=== PATIENT | male | born 1990 | race Caucasian/White ===

== ENCOUNTER → 2020-07-22 07:17 | Outpatient (CLI) | payer OTHER, SELFPAY ==
[2020-07-22 10:20] LABS: HIV - WCH Non-Reactive (Nonreactive); Hepatitis B Surface Antigen Non-Reactive (Nonreactive); Hepatitis C Antibody Non-Reactive (Nonreactive)
[2020-07-29 05:22] LABS: Rapid Plasmin Reagin (RPR) NONREACTIVE (NONREACTIVE)
== END ==
PROVIDERS: PCP Family Medicine; Referring Provider Obstetrics & Gynecology Reproductive Endocrinology; Visit Provider Obstetrics & Gynecology Reproductive Endocrinology
DX: Z11.3 Encounter for screening for infections with a predominantly sexual mode of transmission (principal); Z11.59 Encounter for screening for other viral diseases; Z11.8 Encounter for screening for other infectious and parasitic diseases
CPT/HCPCS: 86592; 86703; 86803; 87340

== ENCOUNTER 2022-09-27 14:12 | Emergency (ER) | payer OTHER, SELFPAY ==
[2022-09-27 14:13] VITALS: BP 121/77; PULSE 71; RESP 16; TEMP 36.4; O2SAT 100; BMI 26.4
[2022-09-27 15:49] LABS: Bacteria 0 SEEN /hpf (None Seen); Mucous, Urine 0 SEEN /hpf (<or=2+); Squamous Epithelial Cells - UA 0 SEEN /hpf (0-5); White Blood Cells 0 SEEN /hpf (0-5)
[2022-09-27 15:55] LABS: Color, Urine Yellow (Yellow); Glucose, Dipstick Normal (Normal); Ketone-Dipstick Negative (Negative); Leukocyte Esterase-Dipstick 25 /ul (Negative); Nitrite-Dipstick Negative (Negative); Occult Blood-Urine 250 /ul (Negative); Protein-Dipstick 30 mg/dl (Negative); Specific Gravity, Urine 1.015 (1.002-1.030); Urine Bilirubin Dipstick Negative (Negative); Urine Clarity Clear (Clear); Urine Urobilinogen Normal (Normal)
--- NOTE | 2022-09-27 15:55 | EDS_ITS ---
HPI History of Present Illness Chief Complaint: Flank Pain Detail of Chief Complaint: Right flank pain and rust colored urine Informant: patient Onset/Context/Timing Onset: Yesterday Context: Sudden Onset Timing: Intermittent and Waxes and wanes Quality: Pain Location: Right groin initially then right flank radiating to the right side of the a Current Severity: Gone Maximum Severity: Severe Worsened by: Nothing Relieved by: Nothing Associated Symptoms Associated Symptoms: Rust colored urine Narrative Narrative: Patient is a 32-year-old male who presents with flank pain. He states yesterday he had pain in the right groin area that radiated to his right flank area. The pain was waxing and waning in nature. It resolved on its own. He has had pain since. Now the pain is located in the right flank that radiates to the anterior right lower quadrant. He has persistent rust colored urine. He denies weight loss or weight gain. He denies fever, chills or night sweats. He denies history of renal ureterolithiasis. There is a family history of renal lithiasis i.e. mother and father. He denies trauma to the abdomen or back. He denies scrotal pain, swelling or testicular pain. He presently is symptom-free. Prior similar symptoms: No Recent Illness/Hospitalization: No PFSH PFSH Medical History no medical history no medical history Allergy/AdvReac Type Severity Reaction Status Date / Time No Known Allergies Allergy Verified 09/27/22 14:12 Family History (Updated 09/27/22 @ 15:[address] Pb Coyne MD) Father Kidney disease Mother Kidney disease Surgical History no surgical history Social History (Updated 09/27/22 @ 15:[address] Pb Coyne MD) Smoking Status: Never smoker alcohol intake: current alcohol intake frequency: holidays/special occasions only substance use type: does not use ROS ROS ED Constitutional Constitutional ED: Denies chills, fever(s), subjective, sweats or weight loss Eyes Eyes: Denies blurry vision or change in vision ENT ENT ED: Denies ear pain, rhinorrhea or sore throat Cardiovascular Cardiovascular: Denies chest pain, palpitations or racing heartbeat Respiratory/Chest Respiratory/Chest: Denies cough, dyspnea or dyspnea on exertion Gastrointestinal Gastrointestinal: Denies abdominal pain, nausea or vomiting Genitourinary Genitourinary ED: Reports hematuria; Denies dysuria or urinary frequency Musculoskeletal Musculoskeletal: Reports back pain; Denies arthralgias or myalgias Integumentary Denies abscess, Abrasions or rash Neurologic Neurologic: Denies headache(s) or paresthesias Hematologic/Lymphatic Hematologic/Lymphatic: Denies anemia, easy bleeding or easy bruising EXAM Physical Exam Const Vital Signs: 09/27/22 14:13 Temperature 97.6 F L Temperature Source Temporal Pulse Rate 71 Respiratory Rate 16 Blood Pressure 121/77 H Blood Pressure Mean 91 Pulse Ox 100 Oxygen Delivery Method Room Air Positive well nourished and well developed General Appearance ED: well developed and NAD; Negative for cyanotic, diaphoretic or pallor HEENT Reports moist mucous membranes HEENT Narrative: Head is atraumatic normocephalic. Ears normal. Nares patent. Mucosa moist. Eyes PERRL and EOMs intact bilaterally General Eye ED: Negative for pale conjunctiva or scleral icterus Neck no lymphadenopathy, supple and no JVD Chest Wall inspection of chest normal and palpation of chest normal Resp normal respiratory effort and clear to auscultation bilaterally Cardio regular rate, regular rhythm, S1 normal heart sound, S2 normal heart sound and no murmurs GI normal to inspection, nondistended, normoactive bowel sounds, non-tender, non- distended and no masses; Negative for hepatosplenomegaly Back/Spine no CVA tenderness Cervical Spine: Negative for cervical spine tenderness Thoracic Spine / Upper Back: Negative for thoracic spinal tenderness Lumbar Spine / Lower Back: Negative for lumbar spinal tenderness Neuro oriented x3, CN's II-XII intact bilaterally and no sensory deficits noted Sensorium / Orientation: alert Motor Exam: strength 5/5 throughout Psych mental status grossly normal Skin no rashes or lesions noted and no wounds General Skin Exam: elasticity normal; Negative for jaundice or pallor MDM MDM MDM Narrative Medical decision making narrative: History and physical is consistent with renal pathology. Need to evaluate for renal/ureterolithiasis versus other cause of gross hematuria. CBC was obtained to assess H&H and white count. BMP to assess renal function. CT of the abdomen pelvis without contrast was ordered because primary thought is patient has a ureteral stone that is causing intermittent obstruction. Lab Data Attestation: I reviewed the patient's lab results. Lab results narrative: CBC and basic metabolic panel unremarkable. Urine is consistent with hematuria. There is no active infection. Labs: Laboratory Results - last 24 hr 11/23/22 11/23/22 11/23/22 15:20 15:20 15:35 WBC 5.8 RBC 5.02 Hgb 14.9 Hct 43.0 MCV 85.7 MCH 29.7 MCHC 34.7 RDW Std Deviation 36.7 RDW Coeff of Megan 11.9 Plt Count 256 MPV 9.5 Immature Gran % (Auto) 0.200 Neut % (Auto) 60.8 Lymph % (Auto) 29.0 [place] % (Auto) 7.6 Eos % (Auto) 1.9 Baso % (Auto) 0.5 Absolute Neuts (auto) 3.5 Absolute Lymphs (auto) 1.68 Nucleated RBC % 0 Sodium 142 Potassium 3.8 Chloride 107 Carbon Dioxide 32.0 Anion Gap 3 L BUN 13 Creatinine 1.04 Estim Creat Clear Calc 96.83 Est GFR (MDRD) Af Amer 105 Est GFR (MDRD) Non-Af 87 BUN/Creatinine Ratio 12.5 Glucose 85 Calcium 9.0 Urine Color Yellow Urine Clarity Clear Urine pH 7.0 Ur Specific [place] 1.015 Urine Protein 30 H Urine Glucose (UA) Normal Urine Ketones Negative Urine Occult Blood 250 H Urine Nitrite Negative Urine Bilirubin Negative Urine Urobilinogen Normal Ur Leukocyte Esterase 25 H Urine RBC > 100 SEEN Urine WBC 0 SEEN Ur Squamous Epith Cells 0 SEEN Amorphous Sediment 1+ Urine Bacteria 0 SEEN Urine Mucus 0 SEEN Radiography Diagnostic Testing: Clinical Impression(s) from Imaging Studies Abdomen/Pelvis CT 09/27/22 15:55 IMPRESSION: (NOT LISTED IN ORDER OF SIGNIFICANCE) There is no right hydronephrosis. However there is a 4.5 mm right UVJ stone. Other findings as above. Electronically Signed: Erci Garcia MD at 16:29 EST Reading Location ID and State: [facility] / [place] , Service support , Treatment and Re-Evaluation Narrative: Patient was informed of results. Pain-free. He will be discharged home with a ppropriate home-going instructions Discharge Plan Triage Chief Complaint: Flank Pain ED Provider: Pb Coyne Dx/Rx/DC Orders Clinical Impression: Calculus of distal left ureter, Gross hematuria Instructions: ED Kidney Stone w/ Colic Primary Care Provider: Adamaris Guzman Referrals: Adamaris Guzman MD [Primary Care Provider] - AnthonyRajinder payne MD [Med Staff - Active Staff] - 5-7 Days Disposition Disposition: Home, Self Care
--- NOTE | 2022-09-27 15:55 | CT_ITS ---
STUDY: CT Abdomen And Pelvis W/O Contrast Injection 09/27/2022 4:25 PM REASON FOR EXAM: Male, 32 years old. ABDOMINAL PAIN Kidney Stone Technologist Notes RT FLANK PAIN, HEMATURIA X 2 DAYS Technologist Notes RT FLANK PAIN, HEMATURIA X 2 DAYS TECHNIQUE: Transaxial images were obtained without oral contrast, and without intravenous contrast. Individualized dose optimization techniques were used for this CT. COMPARISON: None. FINDINGS: The visualized lung bases are unremarkable. The visualized portions of the heart are within normal limits. Unremarkable liver. Unremarkable gallbladder and extrahepatic biliary system. Unremarkable spleen. Unremarkable pancreas. Unremarkable bilateral adrenal glands. No acute findings of the right kidney. There is no right hydronephrosis. However there is a 4.5 mm right UVJ stone. No acute findings of the left kidney. Unremarkable visualized stomach. Unremarkable small intestine. Unremarkable colon. The appendix is visualized and appears unremarkable. There are no acute findings of the abdominal aorta. Unremarkable inferior vena cava. Subcentimeter mesenteric lymph nodes. Unremarkable urinary bladder. There is an umbilical hernia containing fat. There are diffuse degenerative changes of the visualized lumbar spine. CT/Abdomen/Pelvis without Cont IMPRESSION: (NOT LISTED IN ORDER OF SIGNIFICANCE) There is no right hydronephrosis. However there is a 4.5 mm right UVJ stone. Other findings as above. Electronically Signed: Eric Garcia MD at 16:29 EST ,
[2022-09-27 16:07] LABS: Absolute Lymphocyte Count 1.68 X10^3/uL (0.83-4.51); Absolute Neutrophil Count 3.5 X10^3/uL (2.0-7.7); Basophil# 0.03 X10^3/uL; Basophil% 0.5 % (0-1); Eosinophil# 0.11 X10^3/uL; Eosinophils% 1.9 % (0-5); Hemoglobin 14.9 g/dL (13.0-16.5); Lymphocyte # 1.68 X10^3/ul (0.83-4.51); Mean Corp Hgb Conc 34.7 g/dL (32-36); Mean Corpuscular Hgb 29.7 pg (27.0-32.0); Mean Corpuscular Volume 85.7 fL (80-94); Mean Platelet Vol. 9.5 fl (6.2-12.0); Monocyte# 0.44 X10^3/uL; Monocyte% 7.6 % (0-10); NRBC Flagged by Analyzer 0 % (0-5); Neutrophil # 3.52 X10^3/uL (2.7-7.7); Neutrophil % 60.8 % (47-70); Platelet Count 256 K/mm3 (150-450); RBC Distribution Width CV 11.9 % (11.6-14.6); RBC Distribution Width SD 36.7 fl (35.1-43.9); Red Blood Count 5.02 M/mm3 (4.6-6.2); White Blood Count 5.8 K/mm3 (4.4-11.0)
[2022-09-27 16:13] LABS: Red Blood Cells-Urine > 100 SEEN /hpf (0-5)
[2022-09-27 16:14] LABS: Amorphous Sediment 1+
[2022-09-27 16:19] LABS: Anion Gap 3 (5-15); BUN 13 mg/dL (7-18); BUN/Creat Ratio 12.5 RATIO (10-20); Chloride 107 mmol/L (98-107); Creatinine, Serum 1.04 mg/dL (0.70-1.30); EST Glomerular Filtration Rate 87 mL/min (>60); Est Glom Filt Rate - Afr Amer 105 mL/min (>60); Estimated Creatinine Clearance 96.83 ml/min; Glucose 85 mg/dL (74-106); Potassium 3.8 mmol/L (3.5-5.1); Sodium Level 142 mmol/L (136-145)
[2022-09-27 18:12] VITALS: BP 110/73; PULSE 64; RESP 16; O2SAT 100
== END 2022-09-27 18:13 | disposition home or self-care (01) ==
PROVIDERS: Emergency Provider Emergency Medicine; PCP Family Medicine; Visit Provider Emergency Medicine
DX: N20.1 Calculus of ureter (principal); R31.0 Gross hematuria
CPT/HCPCS: 74176; 80048; 81001; 85025; 99283

== ENCOUNTER → 2022-11-30 | Outpatient (CLI) | payer OTHER, SELFPAY ==
[2022-11-30 08:48] LABS: HIV - WCH Non-Reactive (Nonreactive); Hepatitis B Surface Antibody Reactive; Hepatitis C Antibody Non-Reactive (Nonreactive); Syphilis Antibodies Non-reactive
== END | disposition home or self-care (01) ==
PROVIDERS: PCP Family Medicine; Referring Provider Obstetrics & Gynecology Reproductive Endocrinology; Visit Provider Obstetrics & Gynecology Reproductive Endocrinology
DX: Z11.59 Encounter for screening for other viral diseases (principal); Z11.8 Encounter for screening for other infectious and parasitic diseases
CPT/HCPCS: 36415; 86703; 86706; 86780; 86803

== ENCOUNTER → 2023-11-15 | Outpatient (CLI) | payer OTHER, SELFPAY ==
--- OUTSIDE RECORDS SUMMARY | 2023-11-15 06:24 | XMS RPT_ITS | CCD ---
Author Name Unknown Address [address] [place] [address] [address] [place] [address] Organization [facility] Care Team Providers Care Die Tester Name Role Phone Unavailable Primary Care Provider Unavailabl e Medications Completed/Discontinued Medications Medication Drug Class(es) Dates Sig (Normalized) Sig (Original) azithromycin 250 mg oral tablet (1 source) Macrolide Antimicrobial Start: 08-08-2011 azithromycin (ZITHROMAX Z-MARIEL) 250 mg ORAL tablet Take by mouth. Take two tablets the first day and 1 tablet x 4 days. 1 Package 0 08/08/2011 Active Problems Active Problems Problem Classification Problem Date Documented Date Episodic/Chronic Abdominal pain (1 source) Right flank pain; Translations: [Unspecified abdominal pain] Episodic Other congenital anomalies (1 source) Congenital spondylolysis of lumbosacral region; Translations: [Congenital spondylolisthesis] Onset: 01-10-2006 01-10-2006 Chronic Urinary tract infections (1 source) Acute cystitis; Translations: [Acute cystitis with hematuria] Episodic Past or Other Problems Problem Classification Problem Date Documented Da te Episodic/Chronic Allergic reactions (1 source) Disorders of skin induced by physical agents; Translations: [Unspecified contact dermatitis due to plants, except food] Onset: 04-30-2006 04-30-2006 Episodic Results Test Name Value Interpretation Reference Range Facil ity Vital Signs Date Time Vital Sign Value Performing Clinician Kenna stiles 09-27-2022 13:24-0500 Body temperature 97.2 [degF] Nadeem Ortega APRN.CNP Work Phone: [facility] 09-27-2022 13:24-0500 Body weight 79.02 kg Nadeem Ortega APRN.CNP Work Phone: [facility] 09-27-2022 13:24-0500 Diastolic blood pressure 80 mm[Hg] Nadeem Ortega PROOF PASSER.SHE[employer] ROCKER Work Phone: [facility] 09-27-2022 13:24-0500 Heart rate 74 /min Nadeem Ortega PROOF PASSER.SHE[employer] ROCKER Work Phone: [facility] 09-27-2022 13:24-0500 Respiratory rate 16 /min Nadeem Ortega PROOF PASSER.SHEET ROCKER Work Phone: [facility] 09-27-2022 13:24-0500 SaO2% (BldA) [Mass fraction] 98 % Nadeem Ortega PROOF PASSER.SHEET ROCKER Work Phone: [facility] 09-27-2022 13:24-0500 Systolic blood pressure 122 mm[Hg] Nadeem Ortega PROOF PASSER.SHEET ROCKER Work Phone: [facility] Encounters Encounter Date Encounter Type Care Provider Facility Start: 09-27-2022 End: 09-27-2022 ambulatory Facility:[facility] Start: 09-27-2022 End: 09-27-2022 Patient encounter procedure Nadeem Ortega PROOF PASSER.SHE[employer] ROCKER Work Phone: [facility] Procedures Date Procedure Procedure Detail Performing Clinician Start: 09-27-2022 Urnls dip stick/tabl et rgnt auto w/o microscopy Katelynn Campos PROOF PASSER.SHEET ROCKER Work Phone: Plan of Treatment Date Care Activity Detail Author Start: 07-06-2022 Influenza vaccination INFLUENZA (#1) [facility] Start: 11-25-2021 COVID-19 VACCINE (4 - Booster for Moderna series) COVID-19 VACCINE (4 - Booster for Moderna series) [facility] Start: 11-05-2021 DEPRESSION ASSESSMENT DEPRESSION ASS ESSMENT [facility] Start: 2007 Urine microalbumin profile DTAP,TDAP ,TD (1 - Tdap) [facility] Start: 2006 HEPATITIS C SCREENING HEPATITIS C SC ESTRELLA [facility] Start: 2006 HIV SCREENING HIV SCREENING [facility] Start: 1988 HEPATITIS B (1 of 3 - 3-dose series) HEPATITIS B (1 of 3 - 3-dose series) [facility] Immunizations Immunization Date Immunization Notes Care Provider Dipak leilani 05-10-2007 meningococcal polysaccharide vaccine (MPSV4) Nadeem Ortega APRN.CNP Work Phone: [facility] Work Phone: Payers Date Payer Category Payer Unknown MMO MMO [employer] [id number] 2021-Present [phone] [address] [place] [address] PPO [id number] 2021 Unknown [id number] Social History Date Type Detail Facility Start: 09-27-2022 Tobacco smoking stat [facility] Never smoked tobacco [facility] Start: 09-27-2022 Tobacco use and exposure Smoke less tobacco non-user [facility] Start: 09-27-2022 Alcohol intake Current non-dr rose grower of alcohol (finding) [facility] Start: 1990 Sex Assigned At Not on file C [facility] Progress note 09-27-2022 Note Date & Type Note Facility 09-27-2022 Note HNO ID: [id number] Author: Nadeem Ortega APRN.SHEET ROCKER Service: ? Author Type: Nurse Practitioner Type: Progress Notes Filed: 09/27/2022 2:12 PM Note Text: Subjective HPI Nontoxic-appearing male presents urgent care chief complaint flank pain and hematuria. Duration of symptoms 1 day. Associated symptoms gradually worsening flank pain wrapping around to front right lower quadrant. Patient states pain comes and goes. Pain is spastic like. Patient states pain is not overly bothersome currently. Denies any known injuries. States he first noticed blood in his urine. That has become more dark recently. Has not use any OTC medications recently. Denies personal history of kidney stones. States has a strong family history of kidney stones. Denies any weak urine stream or difficulty passing urine. Denies any fever body aches chills productive cough chest pain shortness of breath pleuritic pain hemoptysis nausea vomiting abdominal pain testicular pain or scrotal swelling rashes dysuria frequency urgency or penile discharge. Past medical history prescription medication use and allergies reviewed. .Patient presents with: right flank pain and hematuria: Right flank pain and hematuria x 1 day History reviewed. No pertinent past medical history. PAST SURGICAL HISTORY Procedure Laterality Date ADENOIDECTOMY PRIMARY Adenoidectomy TONSILLECTOMY PRIMARY/SECONDARY Tonsillectomy ALLERGIES Patient has no known allergies. MEDICATIONS azithromycin (ZITHROMAX Z-MARIEL) 250 mg ORAL tablet Take by mouth. Take two tablets the first day and 1 tablet x 4 days. (Patient not taking: Reported on 04/28/2021 ) predniSONE 20 mg ORAL tablet Take by mouth. TAKE ONE(1) TABLET THREE TIMES DAILY FOR 3 DAYS, THEN TAKE ONE(1) TABLET TWO(2) TIMES DAILY FOR 3 DAYS, THEN TAKE ONE(1) TABLET DAILY. (Patient not taking: Reported on 04/28/2021 ) Afwvzaggxtirhtw-Ebvxdcw-ZC (CHERATUSSIN DAC) 30-10-100 mg/5 mL ORAL solution Take 10 mL by mouth four times daily as needed. (Patient not taking: Reported on 04/28/2021) FAMILY HISTORY Problem Relation Age of Onset Cancer Paternal Grandfather None Mother Hypertension Father Social History Tobacco Use Smoking status: Never Smokeless tobacco: Never Substance Use Topics Alcohol use: No Drug use: No BP 122/80 Pulse 74 Temp 36.2 ?C (97.2 ?F) (Tympanic) Resp 16 Wt 79 kg (174 lb 3.2 oz) SpO2 98% Review of Systems Constitutional: Negative for chills, fever and malaise/fatigue. HENT: Negative for congestion, ear discharge, ear pain, sinus pain and sore throat. Eyes: Negative for blurred vision, pain, discharge and redness. Respiratory: Negative for cough, hemoptysis, sputum production, shortness of breath, wheezing and stridor. Cardiovascular: Negative for chest pain. Gastrointestinal: Negative for abdominal pain, diarrhea, nausea and vomiting. Genitourinary: Positive for flank pain and hematuria. Negative for dysuria, frequency and urgency. Musculoskeletal: Negative for myalgias. Skin: Negative for itching and rash. Neurological: Negative for dizziness and headaches. Objective Physical Exam Constitutional: General: He is not in acute distress. Appearance: He is not diaphoretic. HENT: Head: Normocephalic. Eyes: Conjunctiva/sclera: Conjunctivae normal. Pupils: Pupils are equal, round, and reactive to light. Cardiovascular: Rate and Rhythm: Normal rate and regular rhythm. Heart sounds: Normal heart sounds. Pulmonary: Effort: Pulmonary effort is normal. No tachypnea, accessory muscle usage or respiratory distress. Breath sounds: Normal breath sounds. No stridor. No wheezing or rales. Abdominal: General: There is no distension. Palpations: Abdomen is soft. Tenderness: There is no abdominal tenderness. There is no right CVA tenderness, left CVA tenderness, guarding or rebound. Skin: General: Skin is warm and dry. Neurological: Mental Status: He is alert and oriented to person, place, and time. ASSESSMENT/PLAN: 1. Right flank pain - ICD9: 789.09, ICD10: R10.9 (primary diagnosis) - UA DIP, URINE (POC) - CONSULT TO UROLOGY 2. Acute cystitis with hematuria - ICD9: 595.0, ICD10: N30.01 - CONSULT TO UROLOGY Patient diagnosed with right flank pain. Large amount of blood noted on urine dip. Suspicious of kidney stone. We discussed supportive therapies and treatment options. We discussed red flags for prompt reevaluation. We discussed ER evaluation today. Patient states will discuss with to be seen in ED or not today. I discussed the importance of reevaluation with urology for repeat urinalysis due to hematuria. Stressed importance of ED reevaluation with the patient. The patient's clinical presentation is otherwise unremarkable at this time. Based on exam and clinical finding, the patient is stable for discharge. Plan of care was discussed with patient. Patient verbalizes understanding and agrees (more content not included)... [facility] History of Present illness Narrative 09-27-2022 Nadeem Ortega APRN.[facility] - 09/27/2022 1:38 PM EST Note Date & Type Note Facility 09-27-2022 History of Presen t illness Narrative Subjective HPI Nontoxic-appearing male presents urgent care chief complaint flank pain and hematuria. Duration of symptoms 1 day. Associated symptoms gradually worsening flank pain wrapping around to front right lower quadrant. Patient states pain comes and goes. Pain is spastic like. Patient states pain is not overly bothersome currently. Denies any known injuries. States he first noticed blood in his urine. That has become more dark recently. Has not use any OTC medications recently. Denies personal history of kidney stones. States has a strong family history of kidney stones. Denies any weak urine stream or difficulty passing urine. Denies any fever body aches chills productive cough chest pain shortness of breath pleuritic pain hemoptysis nausea vomiting abdominal pain testicular pain or scrotal swelling rashes dysuria frequency urgency or penile discharge. Past medical history prescription medication use and allergies reviewed. .Patient presents with: right flank pain and hematuria: Right flank pain and hematuria x 1 day History reviewed. No pertinent past medical history. PAST SURGICAL HISTORY Procedure Laterality Date ADENOIDECTOMY PRIMARY <AGE 10 Adenoidectomy TONSILLECTOMY PRIMARY/SECONDARY <AGE 10 Tonsillectomy ALLERGIES Patient has no known allergies. MEDICATIONS azithromycin (ZITHROMAX Z-MARIEL) 250 mg ORAL tablet Take by mouth. Take two tablets the first day and 1 tablet x 4 days. (Patient not taking: Reported on 04/28/2021 ) predniSONE 20 mg ORAL tablet Take by mouth. TAKE ONE(1) TABLET THREE TIMES DAILY FOR 3 DAYS, THEN TAKE ONE(1) TABLET TWO(2) TIMES DAILY FOR 3 DAYS, THEN TAKE ONE(1) TABLET DAILY. (Patient not taking: Reported on 04/28/2021 ) Bozlkruphagodfc-Paeydva-BA (CHERATUSSIN DAC) 30-10-100 mg/5 mL ORAL solution Take 10 mL by mouth four times daily as needed. (Patient not taking: Reported on 04/28/2021) FAMILY HISTORY Problem Relation Age of Onset Cancer Paternal Grandfather None Mother Hypertension Father Social History Tobacco Use Smoking status: Never Smokeless tobacco: Never Substance Use Topics Alcohol use: No Drug use: No BP 122/80 Pulse 74 Temp 36.2 C (97.2 F) (Tympanic) Resp 16 Wt 79 kg (174 lb 3.2 oz) SpO2 98% Review of Systems Constitutional: Negative for chills, fever and malaise/fatigue. HENT: Negative for congestion, ear discharge, ear pain, sinus pain and sore throat. Eyes: Negative for blurred vision, pain, discharge and redness. Respiratory: Negative for cough, hemoptysis, sputum production, shortness of breath, wheezing and stridor. Cardiovascular: Negative for chest pain. Gastrointestinal: Negative for abdominal pain, diarrhea, nausea and vomiting. Genitourinary: Positive for flank pain and hematuria. Negative for dysuria, frequency and urgency. Musculoskeletal: Negative for myalgias. Skin: Negative for itching and rash. Neurological: Negative for dizziness and headaches. Objective Physical Exam Constitutional: General: He is not in acute distress. Appearance: He is not diaphoretic. HENT: Head: Normocephalic. Eyes: Conjunctiva/sclera: Conjunctivae normal. Pupils: Pupils are equal, round, and reactive to light. Cardiovascular: Rate and Rhythm: Normal rate and regular rhythm. Heart sounds: Normal heart sounds. Pulmonary: Effort: Pulmonary effort is normal. No tachypnea, accessory muscle usage or respiratory distress. Breath sounds: Normal breath sounds. No stridor. No wheezing or rales. Abdominal: General: There is no distension. Palpations: Abdomen is soft. Tenderness: There is no abdominal tenderness. There is no right CVA tenderness, left CVA tenderness, guarding or rebound. Skin: General: Skin is warm and dry. Neurological: Mental Status: He is alert and oriented to person, place, and time. ASSESSMENT/PLAN: 1. Right flank pain - ICD9: 789.09, ICD10: R10.9 (primary diagnosis) - UA DIP, URINE (POC) - CONSULT TO UROLOGY 2. Acute cystitis with hematuria - ICD9: 595.0, ICD10: N30.01 - CONSULT TO UROLOGY Patient diagnosed with right flank pain. Large amount of blood noted on urine dip. Suspicious of kidney stone. We discussed supportive therapies and treatment options. We discussed red flags for prompt reevaluation. We discussed ER evaluation today. Patient states will discuss with to be seen in ED or not today. I discussed the importance of reevaluation with urology for repeat urinalysis due to hematuria. Stressed importance of ED reevaluation with the patient. The patient's clinical presentation is otherwise unremarkable at this time. Based on exam and clinical finding, the patient is stable for discharge. Plan of care was discussed with patient. Patient verbalizes understanding and agrees to plan of care. This note was generated using [employer] software. It may contain errors in wording, punctuation, or spelling. Nadeem Ortega APRN.NICOLAS documented in this encounter [facility] Evaluation note Note Date & Type Note Facility documented in this encounter [facility] Reason for Referral Specialty Diagnoses / Procedures Referred By Hema hanson Referred To Contact Urology Diagnoses Right flank pain Acute cystitis with hematuria Procedures CONSULT TO UROLOGY Nadeem Ortega APRN.SHEET ROCKER [address] [place] [address] Referral ID Status Reason Start Date Expiration Date Visits Requested Visits Authorized [id number] Ref Not Required PCP Requested Referral 2 09/27/2023 1 1 Summary Purpose Family History No Family History Records Found Advance Directives No Advanced Directives Records Found Additional Source Comments Source Comments (unrecognize d section and content) In the event this informatio n is protected by the Federal Confidentiality of Alcohol and Drug Abuse Patient Records regulations: The Federal rules restrict any use of the information to criminally investigate or prosecute any alcohol or drug abuse patient.[facility] Reason for Visit (unrecogniz ed section and content) (unrecognized sect ion and content) No Status Records Found INFORMATION SOURCE (unrecogn ized section and content) FOR RECORDS PERTAINING TO PATIENTS WHO ARE OR HAVE BEEN ENROLLED IN A CHEMICAL DEPENDENCY/SUBSTANCEABUSE PROGRAM, SOME INFORMATION MAY BE OMITTED. This clinical summary was aggregated from multiple sources. Caution should be exercised in using it in the provision of clinical care. This summary normalizes information from multiple sources, and as a consequence, information in this document may materially change the coding, format and clinical context of patient data. In addition, data may be omitted in some cases. CLINICAL DECISIONS SHOULD BE BASED ON THE PRIMARY CLINICAL RECORDS. [employer] provides no warranty or guarantee of the accuracy or completeness of information in this document.
[2023-11-15 11:34] LABS: HIV - WCH Non-Reactive (Nonreactive); Hepatitis B Surface Antigen Non-Reactive (Nonreactive); Hepatitis C Antibody Non-Reactive (Nonreactive); Syphilis Antibodies Non-reactive
== END | disposition home or self-care (01) ==
LOC: LAB 06:17
PROVIDERS: PCP Family Medicine; Referring Provider Obstetrics & Gynecology Reproductive Endocrinology; Visit Provider Obstetrics & Gynecology Reproductive Endocrinology
DX: Z11.59 Encounter for screening for other viral diseases (principal); Z11.3 Encounter for screening for infections with a predominantly sexual mode of transmission
CPT/HCPCS: 36415; 86703; 86780; 86803; 87340

== ENCOUNTER → 2024-03-12 | Outpatient (CLI) | payer OTHER, SELFPAY ==
[2024-03-12 09:08] LABS: HIV - WCH Non-Reactive (Nonreactive); Hepatitis B Surface Antigen Non-Reactive (Nonreactive); Hepatitis C Antibody Non-Reactive (Nonreactive); Syphilis Antibodies Non-reactive
== END | disposition home or self-care (01) ==
LOC: LAB 07:01
PROVIDERS: PCP Family Medicine; Referring Provider Obstetrics & Gynecology Reproductive Endocrinology; Visit Provider Obstetrics & Gynecology Reproductive Endocrinology
DX: Z11.59 Encounter for screening for other viral diseases (principal); Z11.8 Encounter for screening for other infectious and parasitic diseases
CPT/HCPCS: 36415; 86703; 86780; 86803; 87340